=== PATIENT | female | born 1950 | race Caucasian/White ===

== ENCOUNTER → 2024-01-06 08:39 | Outpatient (REF) | payer BC, SELFPAY ==
[2024-01-06 10:10] LABS: % Basophils 0.8 % (0-2); % Eosinophils 3.9 % (0-6); % Immature Granulocytes 0.2 % (0-0.5); % Lymphocytes 38.6 % (20.5-51.1); % Monocytes 11.3 % (1.7-9.3); % Neutrophils 45.2 % (42.2-75.2); Absolute Basophils 0.1 10^3/uL (0-0.2); Absolute Eosinophils 0.2 10^3/uL (0-0.7); Absolute Lymphocytes 2.4 10^3/uL (1.2-3.4); Absolute Monocytes 0.7 10^3/uL (0.1-0.6); Absolute Neutrophils 2.8 10^3/uL (1.4-6.5); Hematocrit 42.2 % (37.0-47.0); Hemoglobin 14.4 g/dL (12.0-16.0); Mean Corp Hgb Conc. 34.1 g/dL (33.0-37.0); Mean Corpuscular Hgb 31.6 pg (27.0-31.0); Mean Corpuscular Volume 92.7 fL (81.0-99.0); Mean Platelet Volume 11.8 fL (7.4-10.4); Nucleated Red Blood Cells % 0 %; Platelet Count 189 10^3/uL (130-400); Red Blood Cell Count 4.55 10^6/uL (4.20-5.40); Red Cell Dist. Width 13.2 % (11.5-14.5); White Blood Cell Count 6.1 10^3/uL (4.8-10.8)
== END ==
LOC: REG 08:39
PROVIDERS: ATTENDING PHYSICIAN Internal Medicine
DX: D69.6 Thrombocytopenia, unspecified (principal)
CPT/HCPCS: 36415; 85025

== ENCOUNTER → 2024-01-28 13:10 | Outpatient (REF) | payer BC, SELFPAY | LOC: HWWDC 13:10 | PROVIDERS: ATTENDING PHYSICIAN Internal Medicine | DX: Z12.31 Encounter for screening mammogram for malignant neoplasm of breast (principal) | CPT/HCPCS: 77063; 77067 ==

== ENCOUNTER → 2024-02-24 12:36 | Outpatient (REF) | payer BC, SELFPAY | LOC: RAD 12:36 | PROVIDERS: ATTENDING PHYSICIAN Internal Medicine | DX: H53.123 Transient visual loss, bilateral (principal); R51.9 Headache, unspecified; I10 Essential (primary) hypertension | CPT/HCPCS: 36415; 70450; 85652 ==

== ENCOUNTER → 2024-03-03 08:27 | Outpatient (REF) | payer BC, SELFPAY ==
[2024-03-03 10:24] LABS: HDL Cholesterol 70 mg/dl; LDL Cholesterol, Calculated 126 mg/dl; Total Cholesterol 210 mg/dl (50-199); Triglyceride 71 mg/dl (10-149); Very Low Density Lipoprotein 14 mg/dl (0-30)
== END ==
LOC: REG 08:27
PROVIDERS: ATTENDING PHYSICIAN Internal Medicine
DX: I70.90 Unspecified atherosclerosis (principal)
CPT/HCPCS: 36415; 80061

== ENCOUNTER → 2024-09-18 08:54 | Outpatient (REF) | payer BC, SELFPAY ==
[2024-09-18 09:38] LABS: Hematocrit 38.6 % (37.0-47.0); Hemoglobin 12.9 g/dL (12.0-16.0); Mean Corp Hgb Conc. 33.4 g/dL (33.0-37.0); Mean Corpuscular Volume 93.0 fL (81.0-99.0); Nucleated Red Blood Cells % 0 %; Platelet Count 170 10^3/uL (130-400); Red Cell Dist. Width 12.8 % (11.5-14.5)
[2024-09-18 10:13] LABS: ALT (SGPT) 20 U/L (0-35); AST (SGOT) 21 U/L (14-36); Albumin 4.0 g/dl (3.5-5.0); Alkaline Phosphatase 48 U/L (38-126); Blood Urea Nitrogen 24 mg/dl (7-17); Calcium 8.8 mg/dl (8.4-10.2); Carbon Dioxide 28 mmol/L (22-30); Chloride 107 mmol/L (98-107); Glucose 97 mg/dl (70-99); HDL Cholesterol 48 mg/dl; LDL Cholesterol, Calculated 130 mg/dl; Potassium 4.9 mmol/L (3.5-5.1); Sodium 140 mmol/L (135-145); Total Protein 6.4 g/dl (6.3-8.2); Very Low Density Lipoprotein 20 mg/dl (0-30); eGFR > 60.00
== END ==
LOC: REG 08:54
PROVIDERS: ATTENDING PHYSICIAN Internal Medicine
DX: E78.00 Pure hypercholesterolemia, unspecified (principal)
CPT/HCPCS: 36415; 80053; 80061; 85025

== ENCOUNTER → 2025-01-26 07:45 | Outpatient (REF) | payer BC, SELFPAY ==
[2025-01-26 09:43] LABS: Hematocrit 44.9 % (37.0-47.0); Hemoglobin 14.5 g/dL (12.0-16.0); Mean Corp Hgb Conc. 32.3 g/dL (33.0-37.0); Mean Corpuscular Volume 93.5 fL (81.0-99.0); Nucleated Red Blood Cells % 0 %; Platelet Count 257 10^3/uL (130-400); Red Cell Dist. Width 12.8 % (11.5-14.5)
[2025-01-26 09:54] LABS: ALT (SGPT) 18 U/L (0-35); AST (SGOT) 20 U/L (14-36); Albumin 4.5 g/dl (3.5-5.0); Alkaline Phosphatase 64 U/L (38-126); Blood Urea Nitrogen 20 mg/dl (7-17); Calcium 9.2 mg/dl (8.4-10.2); Carbon Dioxide 30 mmol/L (22-30); Chloride 105 mmol/L (98-107); GGTP 10 U/L (12-43); Glucose 93 mg/dl (70-99); HDL Cholesterol 51 mg/dl; Iron 115 ug/dl (37-170); LDL Cholesterol, Calculated 124 mg/dl; Potassium 4.6 mmol/L (3.5-5.1); Sodium 138 mmol/L (135-145); Total Protein 7.5 g/dl (6.3-8.2); Very Low Density Lipoprotein 17 mg/dl (0-30); eGFR > 60.00
[2025-01-26 09:57] LABS: C-Reactive Protein < 5.00 mg/L (0.0-10.00)
[2025-01-26 10:19] LABS: Free T3 3.69 pg/ml (2.77-5.27); Vitamin D, 25-OH*** 44.3 ng/mL (30-80)
[2025-01-26 10:37] LABS: Ferritin 128.0 ng/ml (11.1-264.0)
[2025-01-26 11:09] LABS: Folate 11.5 ng/ml (2.76-20); Vitamin B12 776 pg/ml (239-931)
[2025-01-26 12:26] LABS: Glycohemoglobin (HgbA1c) 5.6 % (4.0-5.9)
[2025-01-26 16:20] LABS: CRP, Ultra Sensitive 0.75 mg/L (0.30-5.00)
[2025-01-26 17:23] LABS: FSH 73.2 mIU/ml
[2025-01-28 22:41] LABS: Magnesium, RBC's Result 5.7 mg/dL (3.6-7.5)
== END ==
LOC: REG 07:45
PROVIDERS: ATTENDING PHYSICIAN Student in an Organized Health Care Education/Training Program; FAMILY PHYSICIAN Nurse Practitioner Family
DX: Z01.818 Encounter for other preprocedural examination (principal); I65.22 Occlusion and stenosis of left carotid artery; N95.1 Menopausal and female climacteric states; E63.9 Nutritional deficiency, unspecified; Z71.3 Dietary counseling and surveillance; R63.5 Abnormal weight gain; M79.10 Myalgia, unspecified site
CPT/HCPCS: 36415; 80053; 80061; 82306; 82525; 82607; 82627; 82642; 82670; 82677; 82679; 82728; 82746; 82977; 83001; 83002; 83018; 83036; 83090; 83540; 83735; 84144; 84146; 84270; 84305; 84402; 84403; 84443; 84466; 84481; 84630; 85025; 85652; 85810; 86140; 86141; 86376; 93005

== ENCOUNTER 2025-02-08 06:23 | Day surgery (SDC) | payer BC, SELFPAY ==
[2025-02-08] VITALS (7 sets, daily range): BP systolic 121–154; BP diastolic 49–76; BMI 36.4
[2025-02-08] MEDS: TYLENOL 1000 MG PO (09:38)
[2025-02-08] MEDS: NORMOSOL-R/PLASMALYTE-A 1000 IV (09:53)
== END 2025-02-08 12:55 | disposition home or self-care (01) ==
LOC: SDS 06:23
PROVIDERS: ATTENDING PHYSICIAN Student in an Organized Health Care Education/Training Program
DX: M20.42 Other hammer toe(s) (acquired), left foot (principal); D16.32 Benign neoplasm of short bones of left lower limb
CPT/HCPCS: 28285; C1713